=== PATIENT | male | born 1955 | race Caucasian/White ===

== ENCOUNTER → 2023-10-03 12:38 | Outpatient (REF) | payer OTHER, SELFPAY | LOC: HWRAD 12:38 | PROVIDERS: ATTENDING PHYSICIAN Surgery Vascular Surgery | DX: I73.9 Peripheral vascular disease, unspecified (principal) | CPT/HCPCS: 75635; Q9967 ==

== ENCOUNTER → 2023-10-14 14:33 | Outpatient (REF) | payer OTHER, SELFPAY | LOC: RAD 14:33 | PROVIDERS: ATTENDING PHYSICIAN Surgery Vascular Surgery; FAMILY PHYSICIAN Nurse Practitioner | DX: I73.9 Peripheral vascular disease, unspecified (principal) | CPT/HCPCS: 93922 ==

== ENCOUNTER 2023-11-02 08:32 | Day surgery (SDC) | payer OTHER, SELFPAY ==
[2023-11-02] VITALS (17 sets, daily range): BP systolic 101–184; BP diastolic 53–162; BMI 20.9
--- NOTE | 2023-11-02 09:31 | W.SUR.PREOP ---
Pre-Operative Surgical Note
-
I have examined this patient prior to the performance of the scheduled procedure.
The patient's condition is unchanged from the time of the current History and
Physical and the patient is able to undergo the scheduled procedure.
[2023-11-02 09:40] LABS: Hemoglobin 10.1 g/dL (13.0-18.0); Mean Corp Hgb Conc. 31.6 g/dL (33.0-37.0); Mean Corpuscular Volume 88.6 fL (80.0-94.0); Platelet Count 219 10^3/uL (130-400); Red Blood Cell Count 3.61 10^6/uL (4.70-6.10); Red Cell Dist. Width 13.6 % (11.5-14.5); White Blood Cell Count 5.4 10^3/uL (4.8-10.8)
[2023-11-02 09:51] LABS: Blood Urea Nitrogen 37 mg/dl (9-20); Carbon Dioxide 22 mmol/L (22-30); Chloride 110 mmol/L (98-107); Estimated Creatinine Clearance 69 ml/min; Glucose 86 mg/dl (70-99); Potassium 4.7 mmol/L (3.5-5.1); Sodium 141 mmol/L (135-145); eGFR > 60.00
[2023-11-02 10:10] LABS: INR 1.17; PT 14.9 Sec (11.4-14.6)
[2023-11-02] MEDS: ROXICODONE 15 MG PO (13:10)
--- NOTE | 2023-11-02 16:59 | OR.RPT ---
Operative Report
Operative Report
PROCEDURE DATE: 11/02/2023
Preoperative diagnosis: Chronic limb threatening ischemia with ischemic rest pain left foot.
Postoperative diagnosis: Same
Procedure:
1. Duplex assisted right common femoral artery cannulation.
2. Aortogram and pelvic angiogram.
3. Left lower extremity arteriogram with third order vessel catheterization of left popliteal artery via right common femoral artery puncture.
4. Balloon angioplasty and stent placement of left distal superficial femoral artery/above-knee popliteal artery with 6 mm x 4 cm Zilver PTX stent.
5. Balloon angioplasty and stent placement of left proximal to mid superficial femoral artery with 6 mm x 4 cm Zilver PTX stent.
6. Right femoral angiogram.
7. Supervision and interpretation.
Surgeon: Jony
Supercalender Operator: None
Complications: None
Anesthesia: Local, sedation
Fluoroscopy:
9.8 min
46 mGy
9.97 Gy.cm2
Indications for procedure:
Chronic limb threatening ischemia ischemic rest pain/fissures left foot. Prior history of failed bypasses. Risk/benefits/alternatives of angiography were fully discussed. Patient understood all wish to proceed.
Description of procedure:
Patient was identified, brought to the operating room. Placed on the table in the supine position. After the adequate administration of anesthesia, the patient was prepped and draped in the standard surgical fashion. A standard preoperative
timeout was undertaken and everybody was in agreement with the plan.
The right common femoral artery was accessed with a micropuncture kit under direct duplex ultrasound guidance. A 5 Spanish sheath was then advanced over a 0.035 inch wire, and a casillas's hook catheter was advanced into the abdominal aorta.
Aortogram and pelvic angiogram was obtained. Findings as follows:
Infrarenal aorta: Heavily calcified distal infrarenal aorta but no definitive significant stenosis identified.
Right common iliac artery: Eccentric calcified ngo, no significant stenosis.
Right external iliac artery: Not well-visualized on this projection.
Left common iliac artery: Heavily calcified ngo no significant stenosis identified.
Left external iliac artery: Heavily calcified ngo no significant stenosis identified.
Using a floppy angled hydrophilic wire, the left common femoral artery was cannulated and the catheter was advanced. Left lower extremity arteriogram was obtained. Findings as follows:
Common femoral artery: Patent with heavy popcorn/coral reef like plaque in the mid to distal common femoral artery and at the origin of the profunda femoris.
Profunda femoris artery: Heavy plaque/stenosis at the origin, but patent beyond there.
Superficial femoral artery: Patent proximal 8 to 10 cm and then severely stenotic at the site of a bypass graft nub that still filled but the remainder of the graft was occluded. Heavily calcified SFA beyond here. In the mid to distal SFA there
was significant opacification/plaque that likely cause significant stenosis. This ran into the above-knee popliteal artery.
Popliteal artery: Plaque/stenosis as above in the above-knee popliteal artery, behind the popliteal artery patent and then occluded in the more distal above-knee segment. There was a large collateral that emerged that initially looked like the
continuation of the popliteal and peroneal artery but as I traced it down was clearly a collateral. On delayed imaging a peroneal artery could be seen to fill below the knee/reconstituted. However is a very diminutive small vessel. And there was
really no filling from it beyond the ankle except wispy collaterals. In addition a distal anterior tibial artery at the ankle could be seen for only a segment of about 4 cm. There was no real filling into the foot from there. There is no named
vessels on the foot.
At this point, I felt that there was no distal target here for bypass or even otherwise. However I felt that treating the SFA/popliteal artery stenoses/plaque disease might be of benefit to increase head of steam into collaterals. In addition I
felt that likely the patient would benefit from a staged femoral endarterectomy with profundoplasty. At this point I selectively cannulated the SFA and then exchanged for a Storq wire and then an up and over 6 Spanish sheath. I give the patient
appropriate dose of heparin. I then under roadmap assisted guidance was able to traverse the area of severe stenosis in the proximal to mid SFA and then again in the more distal SFA/popliteal artery. Angiogram confirmed as in the true lumen. I
then exchanged for a Kngineq wire. I then reangioplasty of the distal SFA/above-knee popliteal artery lesion with a 4 mm angioplasty balloon. I then used a 6 mm x 12 cm Zilver PTX stent which I then post angioplastied with a 5 mm angioplasty
balloon. Angiogram demonstrated excellent result at this juncture. I then turned my attention to the proximal to mid SFA disease. I then used a 6 mm x 8 cm Zilver PTX stent there, and again post angioplastied with a 5 mm balloon. Completion
angiogram demonstrated excellent flow through the SFA and into the popliteal artery. Collaterals filled as they did before. At this point I withdrew my sheath to the right external iliac artery. Right femoral angiogram demonstrated good puncture
in the right common femoral artery. Therefore I exchanged for a short 6 Spanish sheath. The wires were withdrawn. Patient was transported to the recovery area where the sheath was withdrawn and manual pressure was applied. Hemostasis was
completely achieved.
The patient tolerated procedure well.
== END 2023-11-02 18:07 | disposition home or self-care (01) ==
LOC: CATH 08:32
PROVIDERS: ATTENDING PHYSICIAN Surgery Vascular Surgery; FAMILY PHYSICIAN Nurse Practitioner; OTHER PHYSICIAN Internal Medicine Cardiovascular Disease
DX: I70.222 Atherosclerosis of native arteries of extremities with rest pain, left leg (principal); Z79.01 Long term (current) use of anticoagulants; Z79.02 Long term (current) use of antithrombotics/antiplatelets; J44.9 Chronic obstructive pulmonary disease, unspecified; Z95.5 Presence of coronary angioplasty implant and graft; Z87.891 Personal history of nicotine dependence; I25.10 Atherosclerotic heart disease of native coronary artery without angina pectoris; I25.2 Old myocardial infarction
CPT/HCPCS: 37226; 75625; 75716; 76937; 80048; 85027; 85610; 85730; 86850; 86900; 86901; 93005; C1725; C1769; C1874; C1887; C1894

== ENCOUNTER 2023-11-28 06:09 | Inpatient (IN) | payer OTHER, SELFPAY ==
[2023-11-24 11:04] VITALS: BMI 22.3
[2023-11-24 12:19] LABS: % Basophils 0.8 % (0-2); % Eosinophils 3.2 % (0-6); % Immature Granulocytes 0.3 % (0-0.5); % Lymphocytes 21.6 % (20.5-51.1); % Neutrophils 62.1 % (42.2-75.2); Absolute Basophils 0.1 10^3/uL (0-0.2); Absolute Eosinophils 0.2 10^3/uL (0-0.7); Absolute Lymphocytes 1.4 10^3/uL (1.2-3.4); Absolute Monocytes 0.8 10^3/uL (0.1-0.6); Absolute Neutrophils 4.1 10^3/uL (1.4-6.5); Hematocrit 34.9 % (39.0-52.0); Hemoglobin 10.8 g/dL (13.0-18.0); Mean Corp Hgb Conc. 30.9 g/dL (33.0-37.0); Mean Corpuscular Hgb 26.5 pg (27.0-31.0); Mean Corpuscular Volume 85.7 fL (80.0-94.0); Mean Platelet Volume 10.9 fL (7.4-10.4); Nucleated Red Blood Cells % 0 % (-); Platelet Count 224 10^3/uL (130-400); Red Blood Cell Count 4.07 10^6/uL (4.70-6.10); White Blood Cell Count 6.7 10^3/uL (4.8-10.8)
[2023-11-24 12:29] LABS: INR 1.39; PT 17.1 Sec (11.4-14.6)
[2023-11-24 12:31] LABS: APTT 22.8 Sec (23.4-35.0)
[2023-11-24 12:43] LABS: Blood Urea Nitrogen 27 mg/dl (9-20); Calcium 9.4 mg/dl (8.4-10.2); Carbon Dioxide 26 mmol/L (22-30); Chloride 110 mmol/L (98-107); Estimated Creatinine Clearance 71 ml/min; Glucose 86 mg/dl (70-99); Sodium 140 mmol/L (135-145); eGFR > 60.00
--- NOTE | 2023-11-25 09:22 | PTCARENOTE ---
INR 1.39, Anabel at Dr. Borges's office notified.
[2023-11-28] VITALS (16 sets, daily range): BP systolic 91–157; BP diastolic 51–70; BMI 22.1
[2023-11-28] MEDS: NSS 500 IV (06:53)
[2023-11-28] MEDS: PERIDEX 0.12% ORAL RINSE 15 ML PO (06:53)
[2023-11-28] MEDS: BACTROBAN NASAL 1 GRAM NASAL (06:53)
--- NOTE | 2023-11-28 10:29 | W.SUR.POST ---
Surgical Immediate Post Op
Note
Pre Op Diagnosis: PAD
Post Op Diagnosis: PAD
Procedure Performed: Left femoral endarterectomy with bovine patch angioplasty
Primary Surgeon: Jony
Assist: Linda GARCIA
Anesthesia: General
Estimated Blood Loss: 150 cc
Fluids: See anesthesia flowsheet
Drains/Shunts: None
Specimens/Cultures: Left femoral plaque
Doppler/Duplex/Angio (Y/N): Y
Complications: None
Operative Findings: Doppler DP
--- NOTE | 2023-11-28 10:55 | OR.RPT ---
Operative Report
Operative Report
PROCEDURE DATE: 11/28/2023
Preoperative diagnosis: Severe PAD, chronic limb threatening ischemia.
Postoperative diagnosis: Same
Procedure: Left femoral endarterectomy (common femoral, profunda femoris) with bovine pericardial patch angioplasty/profundoplasty.
Surgeon: Jony
Railroad Baggage Porter: ROBERTA Mckeon required for all aspects of procedure including assistance with traction/countertraction, following of suture line, assistance with closure.
Complications: None
Anesthesia: General
Indications for procedure:
Significant peripheral arterial disease. Underwent successful SFA angioplasty/stent, but had no target vessel infrapopliteal. Bulky coral reef like common femoral plaque noted on imaging. Therefore discussed for maximal revascularization femoral
endarterectomy. Discussed that this may not alleviate his rest pain symptoms and/or allow tissue loss. However not much else option squires for revascularization. Risk/benefit/alternatives all extensively discussed. Patient understood all wish to
proceed.
Description of procedure:
Patient was identified brought to the operating room placed on the table in supine position. After the adequate administration of anesthesia he was prepped and draped in the standard surgical fashion. A standard preoperative timeout was undertaken
and everybody was in agreement the plan. A standard longitudinal incision was made in the left groin that was carried through the skin subcutaneous tissue. Any lymphatic type structures and/or crossing veins were ligated between silk ties and then
divided. I dissected down to the level of the inguinal ligament. I identified the common femoral artery as it emerged from underneath the inguinal ligament. I then dissected on the anterior surface of the common femoral artery following my
dissection distally to the bifurcation and then onto the superficial femoral artery. The proximal superficial femoral artery was soft. I passed a vessel loop around it after careful circumferential dissection. Next, identified the origin of the
profunda femoris artery. There was a branch that emanated proximally which I controlled with a vessel loop after circumferential careful dissection. The artery was noted to be hard and proximally. I continued my dissection beyond the first
lateral branch point to the second branch point that emanated medially. The main profunda and then continued on. I had to ligate a couple crossing veins between silk ties and then divided them to allow such exposure. The profunda here (main
profunda) was soft. I therefore carefully circumferentially dissected and passed a vessel loop around it here. Now I turned my attention proximally. I dissected underneath inguinal ligament. The circumflex iliac vessels were controlled with
Vesseloops after careful circumferential dissection. I then dissected cephalad to here and carefully circumferentially dissected the external iliac artery and passed a vessel loop around it. The artery was noted to be soft here. Of note, the
circumflex iliac vein or vein of sorrow was identified and clipped and then divided.
Next, any other branches were controlled with Vesseloops along the course of the common femoral/femoral bifurcation.
Next, I gave the patient an appropriate dose of heparin (approximately 100 units/kg). Once this had circulated for 3 minutes I then clamped the distal profunda with a profunda clamp and tightened my other double looped Vesseloops on the SFA and
other branches. I then placed a Derra clamp on the distal external iliac artery. I now made an arteriotomy on the profunda where it was soft with an 11 blade and extended it cephalad using a Juares scissor all the way up to the proximal common
femoral artery. There was diffuse calcified plaque throughout the artery, but resulted really in significant stenosis in the distal common femoral artery with bulky coral reef like projections in 2 different locations there. (Near the origin of
the profunda as well). At this point I used a [place] to create an endarterectomy plane. I then endarterectomized the plaque out nicely. I was able to get back to a nice clean endpoint proximally in the common femoral artery. There was mild
residual posterior plaque but no significant luminal stenosis. Distally I cut the plaque at the origin of the SFA. It did not result in any SFA stenosis. I was able to aishwarya just slightly out of the SFA to allow the plaque to retract back into
the SFA. I then endarterectomized onto the profunda and feathered out to a nice clean endpoint the distal profunda. At this point is very satisfied. There was some mild residual posterior plaque in the proximal profunda but did not result in
significant luminal stenosis and I was going to patch this all open anyway. At this point any fine debris throughout the endarterectomy bed was removed with fine forceps. I then irrigated heparinized saline. Next, I used a bovine pericardial
patch to sew a long patch angioplasty using a running 5-0 Prolene suture. Prior to completing and tying down my suture line I backbled and forward bled the sun'aq arteries and then reclamped them. I then instilled heparinized saline. I then
completed and tied to my suture line. Next I released my profunda clamp followed by the Derra clamp on the external iliac artery. I then released the other branch Vesseloops and then the SFA vessel loop. A few bleeding points along the suture
line were repaired with [id number] type 6-0 Prolene sutures, as well as 2 pledgeted 6-0 Prolene sutures. Protamine was given to reverse the heparin after I confirmed good Doppler signals in the SFA and profunda distal to the patch. (There is
excellent pulsation in those vessels proximally as well). At this point I achieved and confirmed full hemostasis. I then irrigated copiously. We then closed in layers using 2-0 Vicryl, followed by 3-0 Vicryl, followed by 4-0 Monocryl subcuticular
running suture. Dermabond was applied. The patient tolerated the procedure well. Upon completion had a dopplerable signal in the vicinity of the DP (patient has known infrapopliteal disease with no real named vessels distally and I am not clear
that this was the actual DP, but the Doppler signal was very reasonable).
[2023-11-28] MEDS: DILAUDID 0.5 MG IV ×2 (11:02→11:11)
[2023-11-28 11:04] LABS: Hematocrit 30.1 % (39.0-52.0); Hemoglobin 9.7 g/dL (13.0-18.0); Mean Corp Hgb Conc. 32.2 g/dL (33.0-37.0); Mean Corpuscular Hgb 26.6 pg (27.0-31.0); Mean Corpuscular Volume 82.7 fL (80.0-94.0); Mean Platelet Volume 10.5 fL (7.4-10.4); Platelet Count 177 10^3/uL (130-400); Red Blood Cell Count 3.64 10^6/uL (4.70-6.10); White Blood Cell Count 6.6 10^3/uL (4.8-10.8)
[2023-11-28 11:15] LABS: INR 1.34; PT 16.4 Sec (11.4-14.6)
[2023-11-28 11:16] LABS: APTT 30.2 Sec (23.4-35.0)
[2023-11-28 11:23] LABS: Blood Urea Nitrogen 18 mg/dl (9-20); Calcium 8.3 mg/dl (8.4-10.2); Carbon Dioxide 24 mmol/L (22-30); Chloride 111 mmol/L (98-107); Estimated Creatinine Clearance 79 ml/min; Glucose 101 mg/dl (70-99); Potassium 4.4 mmol/L (3.5-5.1); Sodium 139 mmol/L (135-145); eGFR > 60.00
[2023-11-28] MEDS: NSS 1000 IV ×2 (11:35→23:28)
--- NOTE | 2023-11-28 11:46 | CON.INTV ---
Consultation
Consultation Request
Date/Time Consultation Requested: 11-28-23
Date/Time Consultation Performed: 11-28-23
Requesting Provider: Dr Borges
Performing Provider: Dr Coleman
Reason for Consultation: L femoral endarterectomy
Medical History
-
Chief Complaint: s/p L femoral endarterectomy
History of Present Illness:
Mr Johan Black is a 68/M adm for scheduled L femoral endarterectomy.
Known to Dr Borges, known h/o PVD with previous vascular procedures in [facility]
S/p L femoral endarterectomy 11-27, performed with no complications
Seen at ICU, awake, conversant and in NAD
Former smoker, h/o COPD, on trelegy and prn alb HFA
Past Medical History
Past Medical History: CAD (Stent 2008), COPD, HTN, Hypercholesterolemia and Other (PVD. Back pain)
Social History
Tobacco: Former Smoker
Alcohol: None
Drug: Former User (remote)
Personal:
Living: Alone
Family History
Family History: Diabetes (sons) and Hypertension (F)
Allergies / Home Medications
Allergies
Allergy/AdvReac Type Severity Reaction Status Date / Time
No Known Allergies Allergy Verified 11/28/23 06:25
Home Medications
�Medication �Instructions �Recorded �Confirmed �Last Taken �Type
albuterol sulfate 90 mcg/actuation 2 puff inhalation Q6HPRN PRN SOB, 10/27/23 11/28/23 1 Week Ago History
aerosol inhaler Wheezes ~11/21/23
apixaban 5 mg tablet (Eliquis) 5 mg PO BID 10/27/23 11/28/23 11/25/23 17:00 History
celecoxib 200 mg capsule (Celebrex) 200 mg PO QPM prn 10/27/23 11/28/23 11/27/23 17:00 History
cholecalciferol (vitamin D3) 125 125 mcg PO WEEKLY 10/27/23 11/28/23 11/27/23 17:00 History
mcg (5,000 unit) tablet (Vitamin
D3)
clopidogrel 75 mg tablet 75 mg PO DAILY 10/27/23 11/28/23 11/28/23 04:30 History
fluticasone fur. 200 mcg-umeclid 1 inh inhalation DAILY 10/27/23 11/28/23 11/28/23 04:30 History
62.5 mcg-vilant 25 mcg
inhalat.powder (Trelegy Ellipta)
oxycodone 10 mg tablet 5 mg PO QPM 10/27/23 11/28/23 11/27/23 17:00 History
pregabalin 300 mg capsule (Lyrica) 300 mg PO BID 10/27/23 11/28/23 11/27/23 22:00 History
sotalol 80 mg tablet 80 mg PO BID 10/27/23 11/28/23 11/27/23 17:00 History
atorvastatin 80 mg tablet 80 mg PO QPM 11/21/23 11/28/23 11/27/23 17:00 History
baclofen 5 mg tablet 10 mg PO HS 11/28/23 11/28/23 11/27/23 23:30 History
metoprolol succinate 25 mg 25 mg PO HS 11/28/23 11/28/23 11/27/23 23:30 History
tablet,extended release 24 hr
oxycodone 10 mg tablet 10 mg PO HS 11/28/23 11/28/23 11/27/23 23:30 History
Review of Systems
-
History Source: Patient
All other systems: Negative unless noted
Cardiac: Other (LLE incisional pain)
Vitals / Labs / Diagnostic Testing
Vital Signs
Temp Pulse Resp BP Pulse Ox
97.6 F 66 21 114/56 100
11/28/23 10:40 11/28/23 11:15 11/28/23 11:15 11/28/23 11:15 11/28/23 11:15
Lab Data
11/28/23 10:52
11/28/23 10:52
Laboratory Results
11/28/23
10:52
PT 16.4 H
INR 1.34
APTT 30.2
Microbiology
11/24/23 11:38 Nose MRSA Screen - Final
No Methicillin Resistant Staphylococcus aureus isolated.
Diagnostic Testing:
Physical Exam
-
HEENT: Normocephalic and Moist Mucous Membranes
Cardiovascular: Regular Rhythm, Murmur (n), Calf Tenderness and JVD (n)
Respiratory: Clear and Non-Labored Respirations
GI: Soft, Non Distended and Non Tender
Neurology: Awake, AO x 3 and No Motor Deficits
Skin: Warm
General: Respiratory Distress (n)
Assessment
-
Assessment:
Mr Johan Black is a 68/M adm for scheduled L femoral endarterectomy. Known to Dr Borges, known h/o PVD with previous vascular procedures in [facility]
Impression:
S/p L femoral endarterectomy 11-27
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
HTN
HLD
PVD LLE, on clopidogrel and apixaban
COPD, on trelegy and prn alb HFA
CAD s/p stent
Back pain
Former smoker
Plan:
Postoperative surgical intensive care unit monitoring
Supplemental oxygen as needed
Incentive spirometry
Aspiration precautions
Neuro and vascular checks per protocol
Vascular surgery following-correspondence and operative notes reviewed
Continue trelegy ellipta and prn albuterol HFA
DVT prophylaxis
Early nutrition
Early mobilization
Critical care time: 35 min
[2023-11-28 12:17] LABS: Magnesium 2.1 mg/dl (1.6-2.3)
--- NOTE | 2023-11-28 12:29 | SUR.PHASEI ---
pacu addendum - patient received in pacu post left femoral endareterectomy - c/o left hip pain on arrival and right eye pain. Dr Argueta called for pacu orders. vss. right eye flushed and cold compress to right eye. Dr Argueta visits - no orders
for eye. medicated for left hip pain, no incision pain. labwork sent and results to Tori GRANADOS. Much more comfortable after medication. rash on left foot - as preop. doppler pulses stephani BP consistent with cuff. Eye discomfort gone on
discharge from pacu
[2023-11-28] MEDS: MORPHINE SULFATE 2 MG IV ×2 (13:22→20:59)
--- NOTE | 2023-11-28 13:45 | PTCARENOTE ---
Updated plan of cares. Follow up with vascular and admissions through post op course. Updated vital signs trends, neurovascular checks, and assessment ongoing. Follow labs, ecg, chest xray as per unit based protocols. Patient family at bedside
update icu post op plan of cares. Orientation to unit and remote. Updated admission data and clinical data. Continue follow up rounds and checks.
[2023-11-28] MEDS: NSS 250 IV (15:12)
--- NOTE | 2023-11-28 15:22 | PTCARENOTE ---
updates with Vacular team, spouting installer team thru shift. Continue with warming protocol, present temp 97.4, setting in ambient at this time monitoring at this time. Medications as ordered. IVF continue. Follow up neurovascular checks continue to
improve doppler signals as noted. Patient in good spirits c/c of right eye irritation noted and reviewed. Some improvement with cool compress. Pain medications with relief and follow up via Emar.
[2023-11-28] MEDS: HEPARIN 5000 UNITS SC ×2 (17:40→23:29)
[2023-11-28] MEDS: ROXICODONE 5 MG PO (17:41)
[2023-11-28] MEDS: LIPITOR 80 MG PO (17:41)
--- NOTE | 2023-11-28 19:00 | PTCARENOTE ---
can only verify accuracy of vitals starting at 1900 for this shift.
--- NOTE | 2023-11-28 20:40 | PTCARENOTE ---
program host, aaox3, T99.8- antonia baum removed. SR HR 70-80s, B/L IV WNL- IVF infusing per work list. L rad AL WNL. Sat 97% on 2LNC. LLE Neurovascular checks intact- see work list for full documentation. pt c/o LLE pain- prn morphine given. [place]
draining adequate amt sol urine. POC discussed, call murphy with pt.
[2023-11-28] MEDS: BETAPACE 80 MG PO (20:50)
[2023-11-28] MEDS: LYRICA 300 MG PO (20:50)
[2023-11-28] MEDS: LIORESAL 10 MG PO (23:29)
[2023-11-29] VITALS (11 sets, daily range): BP systolic 87–164; BP diastolic 56–96; BMI 23.3
--- NOTE | 2023-11-29 00:45 | PTCARENOTE ---
pts SBP 70-80s, MAPS in 50s, pt aaox3, no changes in assessment, BDoughertyNP aware-500cc LR bolus now and am labs sent to check hgb.
[2023-11-29] MEDS: LR 500 IV (00:47)
[2023-11-29 01:25] LABS: Hematocrit 26.1 % (39.0-52.0); Hemoglobin 8.4 g/dL (13.0-18.0); Mean Corp Hgb Conc. 32.2 g/dL (33.0-37.0); Mean Corpuscular Hgb 26.7 pg (27.0-31.0); Mean Corpuscular Volume 82.9 fL (80.0-94.0); Mean Platelet Volume 11.4 fL (7.4-10.4); Platelet Count 183 10^3/uL (130-400); Red Blood Cell Count 3.15 10^6/uL (4.70-6.10); Red Cell Dist. Width 14.2 % (11.5-14.5); White Blood Cell Count 9.5 10^3/uL (4.8-10.8)
[2023-11-29 01:29] LABS: Blood Urea Nitrogen 17 mg/dl (9-20); Carbon Dioxide 24 mmol/L (22-30); Chloride 109 mmol/L (98-107); Estimated Creatinine Clearance 79 ml/min; Glucose 145 mg/dl (70-99); Sodium 137 mmol/L (135-145); eGFR > 60.00
[2023-11-29 01:33] LABS: APTT 36.5 Sec (23.4-35.0)
[2023-11-29 02:10] LABS: INR 1.39; PT 16.9 Sec (11.4-14.6)
--- NOTE | 2023-11-29 02:50 | W.PN.UPDATE ---
Update Note
Progress Note Update
0034 Borderline hypotension = gave 500ml fluid bolus and labs meenu. BP did response to fluid bolus. 0245 Notify by bedside nurse that patient is hypotension again, labs reviewed, only significant change was hgb to 8.4. No signs of bleeding, UO >
30ml/hr. �Levophed started, increase IV fluids to 125ml/hr and nurse instructed to updated vascular provider.
--- NOTE | 2023-11-29 02:52 | PTCARENOTE ---
pts SBP low 100s after LR bolus, now back down to 80s/30s MAPs mid 50s, BDoughertyNP made aware, Levo gtt ordered, Vascular aviation mechanic (Dr Fall) also paged to update.
[2023-11-29] MEDS: LEVOPHED 250 IV (03:05)
--- NOTE | 2023-11-29 04:30 | PTCARENOTE ---
no changes in pt assessment.
[2023-11-29] MEDS: MORPHINE SULFATE 2 MG IV (05:02)
[2023-11-29] MEDS: SPIRIVA RESPIMAT 2.5 MCG 2 PUFF INH (07:32)
[2023-11-29] MEDS: SYMBICORT 160/4.5 MCG INHALER 2 PUFF INH ×2 (07:32→19:34)
[2023-11-29] MEDS: BETAPACE PO (08:00)
--- NOTE | 2023-11-29 08:00 | W.PN.INTV ---
Today's Communication / Plan
Recommendations
O2 protocol
BDs
Vasc sx protocol
Assessment
-
Assessment:
Mr Johan Black is a 68/M adm for scheduled L femoral endarterectomy. Known to Dr Borges, known h/o PVD with previous vascular procedures in [facility]
Impression:
S/p L femoral endarterectomy 11-27
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
HTN
HLD
PVD LLE, on clopidogrel and apixaban
COPD, on trelegy and prn alb HFA
CAD s/p stent
Back pain
Former smoker
Plan:
Postoperative surgical intensive care unit monitoring
Supplemental oxygen as needed
Incentive spirometry
Aspiration precautions
Interim hypotension overnight with no signs of bleeding, started on NE, increased IVFs
NE low dose last night, off since 7 am today
Neuro and vascular checks per protocol
Vascular surgery following-correspondence and operative notes reviewed
Continue trelegy ellipta and prn albuterol HFA
DVT prophylaxis
Early nutrition
Early mobilization
Critical care time: 35 min
Subjective Dataa
Subjective Data
Date of Service:
Date of Service: November 29, 2023
Chief Complaint: Compressor Service Technician Follow Up
Subjective:
Interim hypotension last night, required IVFs and low dose NE
Review of Systems
General: Fever (n) and Satisfactory Appetite
HEENT: Epistaxis (n) and Dysphagia (n)
Cardiopulmonary: Dyspnea (n), Cough and Chest Pain (n)
GI: Abdominal Pain, Nausea (n) and Vomiting
Neuro: Weakness
Objective Data
Data Reviewed
Vital Signs / I&O / Oxygen:
Vital Signs
Temp Pulse Resp BP Pulse Ox
98.7 F 90 14 87/56 100
11/29/23 07:56 11/29/23 07:36 11/29/23 07:36 11/29/23 00:31 11/29/23 07:36
Intake and Output
11/28/23 11/29/23 11/30/23
06:59 06:59 06:59
Intake Total 3065 / 3065
Output Total 1904 / 1904
Balance 1160 / 1160
SaO2 100
Nasal Cannula flow liters per 2
minute
Physical Exam
General: Comfortable
HEENT: Normocephalic and Moist Mucous Membranes
Cardiovascular: Regular Rhythm, Murmur (n) and Peripheral Edema
Respiratory: Clear, Non-Labored Respirations and Stridor (n)
GI: Soft, Non Distended and Non Tender
Neurology: Awake, AO x 3 and No Motor Deficits
Skin: Warm
Labs/Micro/Reports
Lab Data
11/29/23 00:58
11/29/23 00:57
Laboratory Results
11/28/23 11/29/23
10:52 00:57
PT 16.4 H 16.9 H
INR 1.34 1.39
APTT 30.2 36.5 H
--- NOTE | 2023-11-29 08:31 | W.PN.VS ---
Addendum entered and electronically signed by Richard Rowell III, MD 11/29/23 14:24:
This patient was seen and examined with JOSE Mckeon and JOSE Chapa. I agree with the history and physical exam as well as the assessment and plan.
Out of bed today
Keep A-line in place given marginal blood pressures
Fluid bolus
Monitor urine output
Okay to advance diet
Signed:
Richard Rowell III, MD
[facility] Vascular Surgery
[phone] (cell)
Original Note:
Today's Communication / Plan
-
Patient seen evaluated bedside with Dr. Richard Rowell III, below plan reviewed with attending
Assessment/Plan
-
Assessment: 68-year-old male POD #1 left femoral endarterectomy
Plan:
Patient with asymptomatic labile blood pressure systolic pressures ranging from 90-100, currently not requiring Reagan-Synephrine for blood pressure support, will continue to monitor and maintain A-line throughout the morning, possible removal later
this afternoon
Can get OOB to chair with progression to ambulation as tolerated and if arterial line discontinued
Discontinue IV fluids
Discontinue Rowell catheter
Will continue to trend hemoglobin with repeat this afternoon
Subjective Data
-
Date of Service: November 29, 2023
Patient seen and examined at bedside, reports adequate postoperative pain management. Denies nausea, vomiting, fever, and chills. Reports eagerness to get out of bed.
Objective Data
-
Vital Signs
Temp Pulse Resp BP Pulse Ox
98.7 F 90 14 87/56 100
11/29/23 07:56 11/29/23 07:36 11/29/23 07:36 11/29/23 00:31 11/29/23 07:36
Intake and Output
11/28/23 11/29/23 11/30/23
06:59 06:59 06:59
Intake Total 3065 / 3065
Output Total 1904
Balance 1160 / 1160
Intake:
Oral fluids 960 / 960
IV fluids (Total) 1854
Nss 1,000 ml @ 125 mls/hr IV . 1654
Q8H JHOANA Rx#:[id number]
nss 200 / 200
IV piggybacks 250 / 250
Output:
Urine, Rowell 1904
Lab Results
11/29/23 00:58
11/29/23 00:57
Calcium 8.0 mg/dl (8.4-10.2) L 11/29/23 00:57
Magnesium 2.1 mg/dl (1.6-2.3) 11/28/23 10:52
Physical Exam
-
AAOx3, no apparent distress
No tachycardia
No dyspnea on room air
ABD flat, nontender, nondistended
Left groin dressing CDI, no evidence of hematoma, all surrounding compartments soft
Left foot warm, Doppler PT signal, motor and sensation intact
[2023-11-29] MEDS: HEPARIN 5000 UNITS SC ×3 (09:09→23:28)
[2023-11-29] MEDS: PLAVIX 75 MG PO (09:10)
[2023-11-29] MEDS: LYRICA 300 MG PO ×2 (09:10→19:52)
[2023-11-29] MEDS: ROXICODONE 5 MG PO ×3 (09:32→22:46)
--- NOTE | 2023-11-29 10:00 | PTCARENOTE ---
pt awake and alert, NSR on monitor , BP 106/40 , 02 sat 99% on 2 L , pt up in bed tolerated breakfast , pt L leg pulse doppler signals , L groin with dressing intact and dry , pt seen by Dr Rowell , pt SBP 90-100 , [place] held this am
[2023-11-29 11:14] LABS: Hematocrit 25.8 % (39.0-52.0); Hemoglobin 8.4 g/dL (13.0-18.0); Mean Corp Hgb Conc. 32.6 g/dL (33.0-37.0); Mean Corpuscular Hgb 27.1 pg (27.0-31.0); Mean Corpuscular Volume 83.2 fL (80.0-94.0); Mean Platelet Volume 10.6 fL (7.4-10.4); Platelet Count 159 10^3/uL (130-400); Red Cell Dist. Width 14.4 % (11.5-14.5); White Blood Cell Count 7.7 10^3/uL (4.8-10.8)
--- NOTE | 2023-11-29 11:25 | CM ---
Patient seen at bedside. Patient stated that he has a sister Hortencia that can have information. Patient PCP is Dr. Dietrich and he uses the [facility] on [address] in [place]. Patient lives in a trailer, with 3 steps to enter and he has a ramp in the
back. Patient stated that he does not anticipate needing any assistance at discharge. CM will continue to follow for discharge planning needs.
Plan; home with no needs vs home with VN/ watch for further assessments.
[2023-11-29] MEDS: NSS 500 IV (12:31)
--- NOTE | 2023-11-29 14:00 | PTCARENOTE ---
pt BP continued to be low SBP 81 at 11:15, pt given a 500 ml bolus at 1230 , hes blood pressure has improved , he is oob in chair tolerated well, pt current BP 130s 140s
[2023-11-29] MEDS: LIPITOR 80 MG PO (17:16)
[2023-11-29] MEDS: BETAPACE 80 MG PO (19:52)
[2023-11-29] MEDS: LIORESAL 10 MG PO (22:13)
[2023-11-29] MEDS: TOPROL XL 25 MG PO (22:13)
--- NOTE | 2023-11-29 22:30 | PTCARENOTE ---
Assumed care of patient at 1915. Patient alert and oriented. VSS. NSR/ST with rate in the 90-110's. Trace edema in b/l ankle and left foot. +DP and PT doppler pulses. Left groin site covered with aquacell dressing. Lung sounds diminished in b/l
bases. Pulse ox 95-96% on RA. +BS. Patient states he has not had a BM since admission. Abdomen round/soft/non-tender. Voiding in urinal. Standing at side of bed without difficulty. Patient states he needed RW to walk distance today. Call murphy within
reach. Full assessment and care as charted on worklist.
--- NOTE | 2023-11-29 23:34 | PTCARENOTE ---
Assessment unchanged. Patient ambulatory to the bathroom with RW. Pain controlled with PRN Nerissa. VSS.
[2023-11-30] VITALS (18 sets, daily range): BP systolic 103–148; BP diastolic 50–107; PULSE 75; O2SAT 97; BMI 23.1
--- NOTE | 2023-11-30 04:44 | DOWNTIME ---
There was a [employer]dler Downtime on 11/30/2023 from 0100 to 11/30/2023 at 0439. Downtime documentation of patient's care, including medication administrations, has been reconciled in the electronic record per guidelines. Refer to the
patient's paper chart under the miscellaneous tab to see printed paper medication records and downtime forms.
--- NOTE | 2023-11-30 04:44 | PTCARENOTE ---
Systems reviewed at 0330. No changes. Patient ambulatory in room with RW with supervision. No complaints. VSS.
[2023-11-30 04:53] LABS: Hematocrit 33.7 % (39.0-52.0); Hemoglobin 10.3 g/dL (13.0-18.0); Mean Corp Hgb Conc. 30.6 g/dL (33.0-37.0); Mean Corpuscular Hgb 26.1 pg (27.0-31.0); Mean Corpuscular Volume 85.3 fL (80.0-94.0); Mean Platelet Volume 11.1 fL (7.4-10.4); Platelet Count 190 10^3/uL (130-400); Red Blood Cell Count 3.95 10^6/uL (4.70-6.10); Red Cell Dist. Width 14.2 % (11.5-14.5); White Blood Cell Count 10.1 10^3/uL (4.8-10.8)
[2023-11-30 05:11] LABS: Blood Urea Nitrogen 17 mg/dl (9-20); Calcium 8.8 mg/dl (8.4-10.2); Carbon Dioxide 24 mmol/L (22-30); Chloride 109 mmol/L (98-107); Estimated Creatinine Clearance 93 ml/min; Glucose 104 mg/dl (70-99); Potassium 4.4 mmol/L (3.5-5.1); Sodium 138 mmol/L (135-145); eGFR > 60.00
--- NOTE | 2023-11-30 07:24 | W.PN.VS ---
Addendum entered and electronically signed by Chandler Borges MD 11/30/23 07:42:
Seen and examined with ROBERTA Shepherd. Agree with findings as noted below. Patient without specific complaints this morning. Abdomen is soft, nondistended, nontender. Left groin dressing clean dry and intact, groin is flat. No hematoma. Foot is warm
with good dopplerable signal. Plan/as discussed and noted below.
Original Note:
Today's Communication / Plan
-
Patient seen evaluated bedside with Dr. Chandler Borges, below plan reviewed with attending.
Assessment/Plan
-
Assessment: 68-year-old male POD #2 left femoral endarterectomy
Plan:
Patient resides alone will get PT/OT to evaluate prior to discharge
Continue to encourage ambulation as tolerated
Dispo planning
Continue as needed pain medication
Continue to encourage incentive spirometry
Possible discharge later this afternoon
Subjective Data
-
Date of Service: November 30, 2023
Patient seen and examined at bedside, reports adequate postoperative pain management does endorse difficulty sleeping overnight. Otherwise offers no complaints. Denies nausea, vomiting, fever, chills, dizziness, and lightheadedness. Tolerating
p.o. diet.
Objective Data
-
Vital Signs
Temp Pulse Resp BP Pulse Ox
98.0 F 95 15 132/85 96
11/30/23 03:25 11/30/23 06:00 11/30/23 06:00 11/30/23 06:00 11/29/23 20:00
Intake and Output
11/29/23 11/30/23 12/01/23
06:59 06:59 06:59
Intake Total 3065 / 3190 1245 / 1245
Output Total 1905 / 1905 1300 / 1300
Balance 1160 / 1285 -55 / -55
Intake:
Oral fluids 960 / 960 370 / 370
IV fluids (Total) 1855 / 1980 875 / 875
NSS bolus 500 / 500
Nss 1,000 ml @ 125 mls/hr IV . 1654 375 / 375
Q8H JHOANA Rx#:[id number]
nss 200 / 200
IV piggybacks 250 / 250
Output:
Urine, Rowell 1904 400 / 400
Urine, Voided 900 / 900
Other:
Number of approximated MODERATE 1
amounts of urine
Number of approximated LARGE 1
amounts of urine
Lab Results
11/30/23 03:33
11/30/23 03:33
Calcium 8.8 mg/dl (8.4-10.2) 11/30/23 03:33
Magnesium 2.1 mg/dl (1.6-2.3) 11/28/23 10:52
Physical Exam
-
AAOx3, no apparent distress
No tachycardia
No dyspnea on room air
ABD flat, nontender, nondistended
Left groin dressing CDI, no evidence of hematoma, all surrounding compartments soft
Left foot warm, Doppler DP and PT signal, motor and sensation intact
[2023-11-30] MEDS: SYMBICORT 160/4.5 MCG INHALER 2 PUFF INH (07:41)
[2023-11-30] MEDS: SPIRIVA RESPIMAT 2.5 MCG 2 PUFF INH (07:41)
[2023-11-30] MEDS: PLAVIX 75 MG PO (07:50)
[2023-11-30] MEDS: LYRICA 300 MG PO (07:50)
[2023-11-30] MEDS: BETAPACE 80 MG PO (07:50)
[2023-11-30] MEDS: TYLENOL 650 MG PO (07:51)
[2023-11-30] MEDS: HEPARIN 5000 UNITS SC (07:51)
--- NOTE | 2023-11-30 08:22 | W.PN.PUL3 ---
Documented by User: Wagner Davenport MD, Resident 11/30/23 13:25
Today's Communication / Plan
-
PT/OT
Ambulation as tolerated
Pain medication as needed
Incentive spirometry
Discharge planning
Assessment
-
Assessment:
Mr Johan Black is a 68/M adm for scheduled L femoral endarterectomy. Known to Dr Borges, known h/o PVD with previous vascular procedures in LLE
Impression:
S/p L femoral endarterectomy 11-27
Conditions MORTGAGE COORDINATOR:
HTN
HLD
PVD LLE, on clopidogrel and apixaban
COPD, on trelegy and prn alb HFA
CAD s/p stent
Back pain
Former smoker
Plan:
Postoperative surgical intensive care unit monitoring
Incentive spirometry
Aspiration precautions
PT/OT
Pain control as needed
Neuro and vascular checks per protocol
Vascular surgery following-correspondence and operative notes reviewed
Continue trelegy ellipta and prn albuterol HFA
DVT prophylaxis
Early nutrition
Early mobilization
Subjective Data
-
Date of Service:
Date of Service: November 30, 2023
Subjective:
S/p left femoral endarterectomy. No significant events overnight.
Review of Systems
General: Fever (n), Chills (n) and Pain (n)
HEENT: Dysphagia (n) and Thrush (n)
Cardiopulmonary: Dyspnea (n), Cough (n) and Chest Pain (n)
GI: Abdominal Pain (n), Nausea (n) and Vomiting (n)
Neuro: Headache (n), Dizziness (n) and Weakness (n)
Objective Data
Data Reviewed
Vital Signs / I&O / Oxygen:
Vital Signs
Temp Pulse Resp BP Pulse Ox
99.4 F 94 18 132/85 97
11/30/23 07:45 11/30/23 07:44 11/30/23 07:44 11/30/23 06:00 11/30/23 07:44
Intake and Output
11/29/23 11/30/23 12/01/23
06:59 06:59 06:59
Intake Total 3065 / 3190 1245 / 1245
Output Total 1905 / 1905 1300 / 1300 400 / 400
Balance 1160 / 1285 -55 / -55 -400 / -400
SaO2 97
Nasal Cannula flow liters per 2
minute
Physical Exam
General: Comfortable
HEENT: Normocephalic and Thrush (n)
Cardiovascular: S1-S2, Regular Rhythm, Murmur (n), Rub (n), Peripheral Edema (n) and Calf Tenderness (n)
Respiratory: Clear and Non-Labored Respirations
GI: Soft, Non Distended, Non Tender and Normal Bowel Sounds
Neurology: Awake, Alert, AO x 3 and No Motor Deficits
Skin: Warm and Other (Left groin dressing CDI, no evidence of hematoma.)
Labs/Micro/Reports
Lab Data
11/30/23 03:33
11/30/23 03:33

Documented by User: Du Coleman MD 11/30/23 14:43
Assessment
-
Assessment:
Mr Johan Black is a 68/M adm for scheduled L femoral endarterectomy. Known to Dr Borges, known h/o PVD with previous vascular procedures in E
Impression:
S/p L femoral endarterectomy 11-27
Conditions MORTGAGE COORDINATOR:
HTN
HLD
PVD LLE, on clopidogrel and apixaban
COPD, on trelegy and prn alb HFA
CAD s/p stent
Back pain
Former smoker
Plan:
Postoperative surgical intensive care unit monitoring completed
Incentive spirometry to continue
Aspiration precautions
PT/OT
Pain control as needed
Neuro and vascular checks per protocol
Vascular surgery following-correspondence and operative notes reviewed
Continue trelegy ellipta and prn albuterol HFA
DVT prophylaxis
Early nutrition
Early mobilization
Disposition: d/c per Vasc Sx
Reconsult prn
ATTENDING PHYSICIAN ATTESTATION:
(Follow-up Visit:)
I personally saw and evaluated the patient along with the Resident Dr Davenport.
Discussed with Resident and discussed in rounds with MDT.
I agree with Resident�s findings and plan as documented in the resident�s note, which was edited by myself.
--- NOTE | 2023-11-30 10:08 | PTCARENOTE ---
Assumed care of patient at 0700. Patient alert and oriented. VSS. NSR/ST with rate in the 70-90s. Trace edema in b/l ankle and left foot. +DP and PT doppler pulses. Left groin site covered with aquacell dressing. Lung sounds diminished in b/l bases.
Pulse ox 95-96% on RA. +BS. Patient states he has not had a BM since admission. Abdomen round/soft/non-tender. Voiding in urinal. Standing at side of bed without difficulty. Call murphy within reach. Full assessment and care as charted on worklist.
--- NOTE | 2023-11-30 11:36 | CM ---
Addendum entered by Yessica Ceja 11/30/23 14:46:
Patient now accepting of referral for VN, reviewed PAC data and liaison sent to [facility] liaison. Patient would like to go to sister's home in [place] for several days and have the VN start on tuesday potentially. CM will continue to follow for
discharge planning needs.
Original Note:
Patient seen at bedside, in ICU. Patient states that he does not think he needs a walker, he has access to one at home. Patient awaiting PT/OT assessment but indicated that he did not believe he would need any home health care. Patient indicated
that he would go to his sister's home if recommended and that she would provide transportation home. IMM completed and signed form placed in chart. CM will continue to follow for discharge planning needs.
Plan; home with no VN; watch for PT/OT assessments.
--- NOTE | 2023-11-30 12:17 | PTCARENOTE ---
Pt sleeping soundly. VSS. No complaints of pain. Awaiting PT/PT for discharge evaluation.
--- NOTE | 2023-11-30 14:25 | W.PN.UPDATE ---
Update Note
Progress Note Update
PT evaluated patient recommending discharge with home health. However, patient has decided to reside at his sister's house for recovery and thus is declining home health at this time. He also indicated that he has a walker available to him in the
outpatient setting if he should require. Patient deemed stable for discharge.
--- NOTE | 2023-11-30 15:54 | VNURNOTE ---
Home Health Liaison met with patient at 1500 to discuss [facility] nurse/therapy, visits, schedule and homebound status. Patient is agreeable and understands that visits at home will be 2-3 x per week to assess and teach medical management. Patient does
not want to be seen until he returns to his home after 12/03.
[facility] brochure provided with contact information. Patient is aware that [facility] will contact him for start of care in 1-2 days after discharge from .
[facility] referral completed in [facility].
--- NOTE | 2023-11-30 16:25 | W.DS.TRANS ---
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
-
Discharge Instructions:
Sleep Apnea Risk Intermediate
Discharge Diagnosis/Procedures Peripheral arterial disease, left femoral
endarterectomy
Diet As tolerated
Activity No strenuous activity
Driving Restrictions Not until seen by your Dr
Bathing Restrictions OK to Shower
Instructions:
Stand-Alone Forms: DC Instr - Vascular OR
Changes to Home Medications: Yes
Discharge Medications:
DC Medications w/original date entered in [employer]
albuterol sulfate 90 mcg/actuation aerosol inhaler 2 puff inhalation Q6HPRN PRN SOB, Wheezes 10/27/23
apixaban 5 mg tablet (Eliquis) 5 mg PO BID Blood Clot Prevention/Tx 10/27/23
celecoxib 200 mg capsule (Celebrex) 200 mg PO QPM PRN pain 10/27/23
cholecalciferol (vitamin D3) 125 mcg (5,000 unit) tablet (Vitamin D3) 125 mcg PO WEEKLY Supplement 10/27/23
clopidogrel 75 mg tablet 75 mg PO DAILY Blood Clot Prevention/Tx 10/27/23
fluticasone fur. 200 mcg-umeclid 62.5 mcg-vilant 25 mcg inhalat.powder (Trelegy Ellipta) 1 inh inhalation DAILY Lung/Breathing Issues 10/27/23
oxycodone 10 mg tablet 5 mg PO QPM Pain 10/27/23
pregabalin 300 mg capsule (Lyrica) 300 mg PO BID Pain 10/27/23
sotalol 80 mg tablet 80 mg PO BID Arrhythmia 10/27/23
atorvastatin 80 mg tablet 80 mg PO QPM High Cholesterol 11/21/23
baclofen 5 mg tablet 10 mg PO HS Muscle Spasms 11/28/23
metoprolol succinate 25 mg tablet,extended release 24 hr 25 mg PO HS Heart Disease/Condition 11/28/23
oxycodone 10 mg tablet 10 mg PO HS Pain 11/28/23
Home Medication Changes
Hold
celecoxib 200 mg capsule (Celebrex) 200 mg PO QPM PRN pain 10/27/23
Pending Results: No
--- NOTE | 2023-11-30 16:26 | W.DCSUMMARY ---
Discharge Summary
Discharge Data
Date of Admission: 11/28/23
Date of Discharge: 11/30/23
-
Pending Results: No
Hospital Course
Attending: Chandler Borges MD
Consultants: Pulmonary medicine
Allergies: NKDA
Procedure with date: Left femoral endarterectomy (common femoral, profunda femoris) with bovine pericardial patch angioplasty/profundoplasty: 11/28/2023
History of present illness: The patient is an 68-year-old male with multiple medical conditions including: Hypertension, [place], COPD, and high cholesterol. Patient presented on 11/28/2023 for scheduled procedure with Dr. Borges. Patient presented at
baseline health with no reports of recent illness or trauma.
Hospital Course: Briefly, the patient underwent scheduled left femoral endarterectomy without complications, and recovered in PACU. Following recovery phase one and two patient was transferred to intensive care unit per protocol for continued
hemodynamic monitoring. [employer]formatic[employer] Architect consulted to aid in medical management from a critical care perspective. POD #1 (11/29/2023) Left groin surgical dressing clean, dry, and intact. No evidence of hematoma. Patient with labile blood pressures, home
blood pressure medications held previous evening and in the afternoon blood pressure improved with no intervention, arterial line and IV fluids discontinued. POD #2 (11/30/2023) Patient continues to tolerate p.o. diet, and report adequate
postoperative pain management. Patient able to ambulate without difficulty or incident, with physical therapy. Patient stable for discharge to home.
Prescriptions and follow up appointment are included in the DC summary nail kegger note. All instructions were given to the patient in both written and verbal form and the patient expressed understanding.
Discharge Plan
-
Patient Disposition: Home (Routine Discharge)
Discharge Diagnosis/Procedures: Peripheral arterial disease, left femoral endarterectomy
Condition: Good
Diet: As tolerated
Activity: No strenuous activity
Driving Restrictions: Not until seen by your Dr
Bathing Restrictions: OK to Shower
Stand Alone Forms: DC Instr - Vascular OR
Referrals:
Dolores Seay PA-C [Specified Professional Personl] - 12/12/23 10:30 am
Wyatt Otto CRNP [Family Provider] -
Prescriptions:
Continued
sotalol 80 mg Tablet
80 mg PO BID
clopidogrel 75 mg Tablet
75 mg PO DAILY
albuterol sulfate 90 mcg/actuation Hfa Aerosol Inhaler
2 puff INHALATION Q6HPRN PRN (Reason: SOB, Wheezes)
pregabalin [Lyrica] 300 mg Capsule
300 mg PO BID
oxycodone 10 mg Tablet
5 mg PO QPM
Hold Instructions: Resume on 11/03/23.
cholecalciferol (vitamin D3) [Vitamin D3] 125 mcg (5,000 unit) Tablet
125 mcg PO WEEKLY
Eliquis 5 mg Tablet
5 mg PO BID
Hold Instructions: Resume on 11/03/23. Can resume Eliquis with tomorrow morning's dose
Trelegy Ellipta 200-62.5-25 mcg Blister With Device
1 inh INHALATION DAILY
atorvastatin 80 mg Tablet
80 mg PO QPM
oxycodone 10 mg Tablet
10 mg PO HS
metoprolol succinate 25 mg Tablet Extended Release 24 Hr
25 mg PO HS
baclofen 5 mg Tablet
10 mg PO HS
Held
celecoxib [Celebrex] 200 mg Capsule
200 mg PO QPM PRN (Reason: pain)
Hold Instructions: Resume on 12/07/23.
Discharge Orders:
Discharge Patient (As Directed); Ordered 11/30/23
Ordered By: Nithya Shepherd
Discharge Date and Time
Print Language: CYMRAES
== END 2023-11-30 19:11 | disposition home or self-care (01) | DRG 254 ==
LOC: ICU 06:09
PROVIDERS: Nurse Practitioner; Nurse Practitioner Acute Care; ADMITTING PHYSICIAN Surgery Vascular Surgery; FAMILY PHYSICIAN Nurse Practitioner; OTHER PHYSICIAN Internal Medicine Pulmonary Disease
PROC: 04CL0ZZ Extirpation of Matter from Left Femoral Artery, Open Approach (ICD-10-PCS; 2023-11-28)
DX: I70.222 Atherosclerosis of native arteries of extremities with rest pain, left leg (principal); I10 Essential (primary) hypertension; I25.10 Atherosclerotic heart disease of native coronary artery without angina pectoris; J44.9 Chronic obstructive pulmonary disease, unspecified; E78.00 Pure hypercholesterolemia, unspecified; I25.2 Old myocardial infarction; Z95.5 Presence of coronary angioplasty implant and graft; Z79.02 Long term (current) use of antithrombotics/antiplatelets
CPT/HCPCS: 88304; 88311; 35371; 36415; 71045; 71046; 80048; 83735; 85025; 85027; 85610; 85730; 86850; 86900; 86901; 87070; 93005; 94640; 97163; 97530; C1769

== ENCOUNTER → 2024-01-02 12:53 | Outpatient (REF) | payer OTHER, SELFPAY | LOC: RAD 12:53 | PROVIDERS: ATTENDING PHYSICIAN Physician Assistant; FAMILY PHYSICIAN Nurse Practitioner | DX: I73.9 Peripheral vascular disease, unspecified (principal) | CPT/HCPCS: 93922; 93925 ==

== ENCOUNTER → 2024-04-30 14:55 | Outpatient (REF) | payer OTHER, SELFPAY | LOC: RAD 14:55 | PROVIDERS: ATTENDING PHYSICIAN Surgery Vascular Surgery | DX: I73.9 Peripheral vascular disease, unspecified (principal) | CPT/HCPCS: 93922; 93925 ==